=== PATIENT | female | born 1990 | race Caucasian/White ===

== ENCOUNTER 2018-02-14 10:59 | Emergency (ER) | payer BC, SELFPAY ==
[2018-02-14 11:00] VITALS: BP 108/68; PULSE 64; RESP 16; TEMP 36.6; O2SAT 99; BMI 25.6
[2018-02-14] MEDS: 0.9% Normal Saline 1,000 ML 999 ML IV (11:30)
[2018-02-14] MEDS: Ketorolac 30 MG/ML Syringe IV (11:30)
[2018-02-14] MEDS: DiphenhydrAMINE 50 MG/ML Syringe 25 MG IV (11:31)
[2018-02-14] MEDS: proCHLORPERazine 10 MG/2 ML Vial IV (11:32)
--- NOTE | 2018-02-14 11:35 | ED.DCSUM_ITS ---
- ER Visit Summary Date of Service: 02/14/18 Chief Complaint: Headache History of Present Illness: The patient is a 27 F who states that 3:00 this morning she developed a right-sided frontal headache. She states by 6:00 this morning it was more severe. She does note some nausea and vomiting. She states she has a history of migraines and this feels similar. She denies any recent fevers. She denies any paresthesias. She denies any weakness. She notes light sensitivity. She does not take any prescription medications for migraines. Physical Examination: Afebrile vital signs stable Gen: Well-nourished well-developed Head: Normocephalic atraumatic Eyes: Perrl EOMI ENT: TMs clear no rhinorrhea moist mucous membranes Neck: Supple no lymphadenopathy no JVD nontender CVS: Regular rate rhythm no murmurs normal S1-S2 Respiratory: No distress clear to auscultation bilaterally chest nontender Abdomen: Soft nontender nondistended normal bowel sounds no masses Back: Nontender Extremity: Nontender no edema Skin: Normal color no rash Neuro: alert orientated ?3 CN II-XII intact normal strength sensation reflexes gait cerebellar Psych: Normal affect normal mood Emergency Department Course and Treatment: Patient received IV fluids, Toradol, Compazine, and Benadryl. Patient's pain is improved. She will be discharged home to follow-up with her doctor. Impression: 1. Headache This note was generated with [employer] dictation software. It may contain incorrect words, spelling, and punctuation that were not noted in review of the chart prior to signing ED Disposition - Plan for ED Patient: Disposition: Home or Assisted Living Chief Complaint: Headache Instructions: ED Headache Migraine Referrals: Sharif Allen MD [Primary Care Provider] - 1 Week
[2018-02-14 12:42] VITALS: BP 101/59; PULSE 71; RESP 16; O2SAT 100
--- NOTE | 2018-02-14 12:42 | ED.RN ---
REVIEWED D/C INSTRUCTIONS, FOLLOW UP CARE, AND S/S THAT WOULD WARRANT A RETURN TO THE ED WITH PT. PT VERBALIZED AN UNDERSTANDING AND DENIES FURTHER QUESTIONS FOR THIS RN. PT SKIN P/W/D, RESP EVEN AND UNLABORED, PT A&O X 3, NO DISTRESS NOTED. PT AMBULATED OUT OF ED, GAIT STEADY.
== END 2018-02-14 12:43 | disposition home or self-care (01) ==
PROVIDERS: Emergency Provider Emergency Medicine; Family Provider Family Medicine; PCP Family Medicine
DX: G43.909 Migraine, unspecified, not intractable, without status migrainosus (principal); Z79.899 Other long term (current) drug therapy
CPT/HCPCS: 96361; 96374; 96375; 99284; J7030; A4216

== ENCOUNTER → 2020-08-04 | Outpatient (CLI) | payer OTHER, SELFPAY | END | disposition home or self-care (01) | LOC: LABSPEC 15:56 | PROVIDERS: PCP Family Medicine; Referring Provider Family Medicine; Visit Provider Family Medicine | DX: J20.9 Acute bronchitis, unspecified (principal) | CPT/HCPCS: 87635; U0003 ==

== ENCOUNTER → 2020-09-21 15:47 | Outpatient (CLI) | payer OTHER, SELFPAY | PROVIDERS: PCP Family Medicine; Visit Provider Family Medicine | DX: U07.1 COVID-19 (principal) | CPT/HCPCS: 87635; 87804; U0003 ==

== ENCOUNTER → 2021-08-11 11:09 | Outpatient (CLI) | payer BC, SELFPAY ==
[2021-08-11 12:55] LABS: Erythrocyte Sedimentation Rate 9 mm/hr (0-30)
[2021-08-11 12:58] LABS: Absolute Lymphocyte Count 1.48 X10^3/uL (0.83-4.51); Absolute Neutrophil Count 3.2 X10^3/uL (2.0-7.7); Hematocrit 37.4 % (37-47); Hemoglobin 12.6 g/dL (12.0-15.0); Lymphocyte # 1.48 X10^3/ul (0.83-4.51); Lymphocyte % 29.5 % (19-41); Mean Corp Hgb Conc 33.7 g/dL (32-36); Mean Corpuscular Hgb 30.9 pg (27.0-32.0); Mean Corpuscular Volume 91.7 fL (81-99); Mean Platelet Vol. 10.4 fl (6.2-12.0); Monocyte# 0.32 X10^3/uL; Monocyte% 6.4 % (0-10); NRBC Flagged by Analyzer 0 % (0-5); Neutrophil % 63.9 % (47-70); Platelet Count 243 K/mm3 (150-450); RBC Distribution Width CV 12.2 % (11.6-14.6); Red Blood Count 4.08 M/mm3 (4.2-5.4)
[2021-08-11 13:29] LABS: AST(SGOT) 28 U/L (15-37); Alanine Aminotransfer ALT/SGPT 34 U/L (13-56); Albumin, Serum 3.6 g/dL (3.2-5.0); Alkaline Phosphatase 74 U/L (45-117); Anion Gap 4 (5-15); BUN 12 mg/dL (7-18); BUN/Creat Ratio 19.1 RATIO (10-20); Calcium,Total 8.7 mg/dL (8.5-10.1); Chloride 105 mmol/L (98-107); Creatinine, Serum 0.63 mg/dL (0.55-1.02); EST Glomerular Filtration Rate 116 mL/min (>60); Est Glom Filt Rate - Afr Amer 141 mL/min (>60); Globulin 3.7 g/dL (2.2-4.2); Glucose 77 mg/dL (74-106); Potassium 3.9 mmol/L (3.5-5.1); Protein, Total 7.3 g/dL (6.4-8.2); Sodium Level 139 mmol/L (136-145); Thyroid Stim Hormone (TSH) 1.29 uIU/mL (0.358-3.74)
== END ==
PROVIDERS: PCP Family Medicine; Referring Provider Family Medicine; Visit Provider Family Medicine
DX: L50.9 Urticaria, unspecified (principal)
CPT/HCPCS: 36415; 80053; 84443; 85025; 85652; 86003; 86005; 86038